=== PATIENT | male | born 1990 | race Caucasian/White ===

== ENCOUNTER 2022-05-05 12:48 | Outpatient (RCR) | payer OTHER, MEDICARE, MEDICAID | END 2022-05-12 | disposition home or self-care (01) | LOC: MKS.ESL.OT | DX: G82.20 Paraplegia, unspecified (principal) ==

== ENCOUNTER 2022-10-09 15:48 | Outpatient (RCR) | payer OTHER, MEDICARE, MEDICAID | END 2022-10-09 15:55 | LOC: MKS.ESL.OT 15:48 | DX: G82.20 Paraplegia, unspecified (principal) ==